=== PATIENT | male | born 1980 | race American Indian/Alaskan Native ===

== ENCOUNTER 2020-03-01 10:14 | Emergency (ER) | payer SELFPAY ==
[2020-03-01 11:01] VITALS: BP 127/82
--- NOTE | 2020-03-01 14:06 | Emergency Department Report ---
ED General Adult HPI - General Chief complaint: Abdominal Pain Stated complaint: CONSTIPATION Time Seen by Provider: 03/01/20 13:59 Source: patient Mode of arrival: Ambulatory Limitations: No Limitations - History of Present Illness Initial comments: 39-year-old male presents to the emergency room reporting a 5-day history of constipation. Patient states he suffered from this in the past. Patient denies any abdominal pain no nausea no vomiting but does report some rectum discomfort. Patient states that he sees blood when he wipes. Patient denies any fever chills. Patient denies any past medical history currently takes no medications on a daily basis. Onset/Timin -: days(s) Quality: aching Consistency: intermittent - Related Data Previous Rx's Medication Instructions Recorded Last Taken Type Docusate Sodium [Colace] 100 mg PO BID PRN #30 capsule 03/01/20 Unknown Rx Glycerin 1 each RC TID PRN #1 box 03/01/20 Unknown Rx Polyethylene Glycol 3350 [Miralax] 238 gm PO QDAY PRN #238 gram 03/01/20 Unknown Rx Allergies Allergy/AdvReac Type Severity Reaction Status Date / Time No Known Allergies Allergy Unverified 03/01/20 11:01 ED Review of Systems ROS: Stated complaint: CONSTIPATION Other details as noted in HPI ED Past Medical Hx - Past Medical History Previous Medical History?: No - Surgical History Past Surgical History?: No - Social History Smoking Status: Never Smoker Substance Use Type: None - Medications Home Medications: Home Medications Medication Instructions Recorded Confirmed Last Taken Type Docusate Sodium [Colace] 100 mg PO BID PRN #30 capsule 03/01/20 Unknown Rx Glycerin 1 each RC TID PRN #1 box 03/01/20 Unknown Rx Polyethylene Glycol 3350 [Miralax] 238 gm PO QDAY PRN #238 gram 03/01/20 Unknown Rx ED Physical Exam - General Limitations: No Limitations General appearance: alert, in no apparent distress - Head Head exam: Present: atraumatic, normocephalic - Eye Eye exam: Present: normal appearance - ENT ENT exam: Present: mucous membranes moist - Neck Neck exam: Present: normal inspection, full ROM - Respiratory Respiratory exam: Present: normal lung sounds bilaterally. Absent: respiratory distress - Cardiovascular Cardiovascular Exam: Present: regular rate, normal rhythm. Absent: systolic murmur, diastolic murmur, rubs, gallop - GI/Abdominal GI/Abdominal exam: Present: soft. Absent: distended, tenderness, guarding - Back Exam Back exam: Present: normal inspection - Neurological Exam Neurological exam: Present: alert, oriented X3, normal gait - Psychiatric Psychiatric exam: Present: normal affect, normal mood - Skin Skin exam: Present: warm, dry, intact, normal color. Absent: rash ED Course Vital Signs 03/01/20 10:59 Temperature 97.4 F L Pulse Rate 69 Respiratory 19 Rate Blood Pressure 127/82 O2 Sat by Pulse 100 Oximetry ED Medical Decision Making - Medical Decision Making 39-year-old male presents to the emergency room reporting a 5-day history of constipation. Patient states he suffered from this in the past. Patient denies any abdominal pain no nausea no vomiting but does report some rectum discomfort. Patient states that he sees blood when he wipes. Patient denies any fever chills. Patient denies any past medical history currently takes no me dications on a daily basis. Critical care attestation.: If time is entered above; I have spent that time in minutes in the direct care of this critically ill patient, excluding procedure time. ED Disposition Clinical Impression: Acute constipation Disposition: DC-01 TO HOME OR SELFCARE Is pt being admited?: No Does the pt Need Aspirin: No Condition: Stable Instructions: Constipation, Adult, [id number] Additional Instructions: Please take medications as prescribed. 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 Sure to increase your fiber intake drink plenty of water. Prescriptions: Docusate Sodium [Colace] 100 mg PO BID PRN #30 capsule PRN Reason: Constipation Glycerin 1 each RC TID PRN #1 box PRN Reason: Constipation Polyethylene Glycol 3350 [Miralax] 238 gm PO QDAY PRN #238 gram PRN Reason: Constipation Referrals: PRIMARY CARE, [Primary Care Provider] - 3-5 Days [facility] [Provider Group] - 3-5 Days
== END 2020-03-01 14:09 | disposition home or self-care (01) ==
LOC: ED 10:14
DX: Z79.899 Other long term (current) drug therapy (principal)
CPT/HCPCS: 99282